=== PATIENT | female | born 1960 | race Caucasian/White ===

== ENCOUNTER 2017-10-19 09:56 | Emergency (ER) | payer MEDICARE, MEDICAID ==
[~2017-10-19 09:56] MED LIST: CITA20TA11 PO; HYDR-3927 PO; LAMO200T2 PO; LORA1TAB PO; METH500T PO; NITR100C11 PO; OLAN2.5T3 PO; OLAN5TAB3 PO; OMEP-50 PO; ONDA4TAB12 PO
[2017-10-19 11:59] LABS: BASOPHILS % (AUTO) 0.3 % (0-1); EOSINOPHILS # (AUTO) 0.2 X10'3 (0-0.9); EOSINOPHILS % (AUTO) 3.2 % (0-6); HEMATOCRIT 37.7 % (35.0-45.0); LYMPHOCYTES # (AUTO) 1.7 X10'3 (1.1-4.8); LYMPHOCYTES % (AUTO) 26.9 % (21-51); MEAN CORPUSCULAR HEMOGLOBIN 27.8 PG (27.0-31.0); MEAN CORPUSCULAR HGB CONC 34.4 % (33.0-36.5); MEAN CORPUSCULAR VOLUME 80.8 FL (78-98); MEAN PLATELET VOLUME 7.4 FL (7.4-10.4); MONOCYTES # (AUTO) 0.5 X10'3 (0-0.9); MONOCYTES % (AUTO) 7.2 % (2-12); NEUTROPHILS # (AUTO) 3.9 X10'3 (1.8-7.7); NEUTROPHILS % (AUTO) 62.4 % (42-75); PLATELET COUNT 366 X10'3 (140-440); RED BLOOD COUNT 4.67 X10'6 (4.20-5.60); RED CELL DISTRIBUTION WIDTH 15.7 % (11.5-14.5); WHITE BLOOD COUNT 6.3 X10'3 (4.5-11.0)
[2017-10-19 12:24] LABS: ALANINE AMINOTRANSFERASE 23 U/L (12-78); ALBUMIN 4.1 G/DL (3.4-5.0); ALBUMIN/GLOBULIN RATIO 1.2 (1.1-1.5); ALKALINE PHOSPHATASE 97 IU/L (46-116); ANION GAP 9 (8-16); ASPARTATE AMINO TRANSFERASE 15 U/L (10-37); BILIRUBIN,TOTAL 0.4 MG/DL (0.1-1.0); BLOOD UREA NITROGEN 7 MG/DL (7-18); BUN/CREATININE RATIO 6.4 (6.6-38.0); CALCIUM 8.9 MG/DL (8.5-10.1); CHLORIDE 101 MMOL/L (99-107); GLUCOSE 98 MG/DL (70-104); POTASSIUM 3.8 MMOL/L (3.5-5.1); SODIUM 139 MMOL/L (135-145); TOTAL CARBON DIOXIDE 29.4 MMOL/L (24-32); TOTAL PROTEIN 7.4 G/DL (6.4-8.2); eGFR 52 ML/MIN
[2017-10-19 12:25] LABS: ETHANOL < 0.010 GM/DL (0.0-0.010)
[2017-10-19] MEDS ORDERED: LAMO100T89 PO (13:06)
[2017-10-19 13:14] LABS: CLARITY,URINE Clear (Clear); COLOR,URINE Yellow (Yellow); GLUCOSE, URINE Negative (Neg); KETONES,URINE Negative (Neg); LEUKOCYTE ESTERASE ,URINE Moderate (Neg); NITRITES, URINE Negative (Neg); OCCULT BLOOD,URINE Negative (Neg); PH,URINE 5.5 (4.8-8.0); PROTEIN,URINE Negative (Neg)
[2017-10-19 13:15] LABS: UA COLLECTION TYPE CLN CATCH MIDSTREAM; URINE HCG NEGATIVE (NEG)
[2017-10-19 13:21] LABS: BACTERIA,URINE FEW /HPF (Neg); MUCUS STRANDS NONE SEEN /LPF (Neg); RBC,URINE NONE SEEN /HPF (0-2); SQUAMOUS EPITHELIAL CELL,UR FEW /LPF (FEW); WBC,URINE 0-4 /HPF (0-4)
[2017-10-19 13:26] LABS: URINE AMPHETAMINE SCREEN POSITIVE (Neg); URINE BARBITUATE SCREEN NEGATIVE (Neg); URINE BENZODIAZEPINES SCREEN POSITIVE (Neg); URINE CANNABINOID SCREEN NEGATIVE (Neg); URINE COCAINE SCREEN NEGATIVE (Neg); URINE METHADONE SCREEN NEGATIVE (Neg); URINE OPIATE SCREEN NEGATIVE (Neg); URINE PHENCYCLIDINE SCREEN NEGATIVE (Neg)
[2017-10-19] MEDS ORDERED: IBUP-1984 PO (13:29)
[2017-10-19] MEDS ORDERED: ONDA4TAB9 PO (13:29)
[2017-10-19] MEDS ORDERED: FAMO10TA41 PO (13:29)
[2017-10-19] MEDS ORDERED: LAMO200T2 PO (13:43)
[2017-10-19] MEDS ORDERED: BUSP10TA11 PO (13:46)
[2017-10-19] MEDS ORDERED: ZOLP10TA5 PO (13:46)
[2017-10-19] MEDS ORDERED: PANT20TA2 PO (13:46)
[2017-10-19 14:00] VITALS: BP 122/78
[2017-10-19] MEDS ORDERED: zolpidem 5mg tablet PO PRN (14:10)
[2017-10-19] MEDS ORDERED: ibuprofen tablet 400 MG TABLET PO PRN (14:10)
[2017-10-19] MEDS ORDERED: ondansetron 4mg rapidly disintigrating tab PO PRN (14:10)
[2017-10-19] MEDS ORDERED: LORazepam 1 MG tablet PO PRN (14:45)
[2017-10-19] MEDS ORDERED: busPIRone 5mg tablet PO SCH (20:00)
[2017-10-19] MEDS ORDERED: famotidine 20mg tablet PO SCH (21:00)
[2017-10-20] MEDS ORDERED: pantoprazole 40mg Tablet.DR PO SCH (07:30)
[2017-10-20] MEDS ORDERED: lamoTRIgine 100mg tablet PO SCH (08:00)
== END 2017-10-19 16:28 ==
LOC: ER 09:56
DX: F41.9 Anxiety disorder, unspecified (principal); F31.9 Bipolar disorder, unspecified; I10 Essential (primary) hypertension; K21.9 Gastro-esophageal reflux disease without esophagitis; F12.10 Cannabis abuse, uncomplicated; F15.10 Other stimulant abuse, uncomplicated; Z60.2 Problems related to living alone; Z88.8 Allergy status to other drugs, medicaments and biological substances; Z90.49 Acquired absence of other specified parts of digestive tract; Z79.899 Other long term (current) drug therapy
CPT/HCPCS: 36415; 80053; 80305; 80320; 81001; 81025; 84443; 85025; 99285

== ENCOUNTER 2017-10-19 15:16 | Inpatient (IN) | payer MEDICARE, MEDICAID ==
[~2017-10-19] VITALS: Ht 172.7 cm; Wt 84.1 kg
[~2017-10-19 15:16] MED LIST changes: +BUSP10TA11 PO; +FAMO10TA41 PO; +IBUP-1984 PO; +LAMO100T89 PO; +ONDA4TAB9 PO; +PANT20TA2 PO; +ZOLP10TA5 PO
[2017-10-19 17:26] VITALS: BP 142/96
[2017-10-19 20:00] VITALS: BP 137/97
[2017-10-19 20:30] VITALS: BP 120/84
[2017-10-19] MEDS: busPIRone 5mg tablet PO SCH (20:55)
[2017-10-19] MEDS: famotidine 20mg tablet PO SCH (20:56)
[2017-10-19] MEDS ORDERED: zolpidem 5mg tablet PO PRN (21:00)
[2017-10-20 07:25] VITALS: BP 120/80
[2017-10-20] MEDS ORDERED: clonazePAM 1mg tablet PO ONE (07:35)
[2017-10-20] MEDS: pantoprazole 40mg Tablet.DR PO SCH (07:45)
[2017-10-20] MEDS ORDERED: lamoTRIgine 100mg tablet PO SCH (08:00)
[2017-10-20] MEDS: busPIRone 5mg tablet PO SCH ×2 (09:00→21:26)
[2017-10-20] MEDS: ibuprofen tablet 400 MG TABLET PO PRN (14:03)
[2017-10-20] MEDS: ondansetron 4mg rapidly disintigrating tab PO PRN (14:03)
[2017-10-20] MEDS ORDERED: zolpidem 5mg tablet PO PRN (14:05)
[2017-10-20] MEDS ORDERED: calcium carbonate 500mg chew tablet PO PRN ×2 (15:15→16:06)
[2017-10-20 19:45] VITALS: BP 120/84
[2017-10-20] MEDS: polyethylene glycol 3350 17gm powd pack PO SCH (21:00)
[2017-10-20] MEDS ORDERED: gabapentin 400mg capsule PO SCH (21:00)
[2017-10-20] MEDS: clonazePAM 0.5mg tablet PO PRN (21:28)
[2017-10-20] MEDS: famotidine 20mg tablet PO SCH (21:28)
[2017-10-21] MEDS ORDERED: gabapentin 300mg capsule PO SCH ×2 (07:30→21:00)
[2017-10-21 08:00] VITALS: BP 129/87
[2017-10-21] MEDS: pantoprazole 40mg Tablet.DR PO SCH (08:44)
[2017-10-21] MEDS: buPROPion 75mg tablet PO SCH (08:44)
[2017-10-21] MEDS: lamoTRIgine 100mg tablet PO SCH (08:45)
[2017-10-21] MEDS: busPIRone 5mg tablet PO SCH ×2 (08:46→21:05)
[2017-10-21] MEDS: gabapentin 100mg capsule PO SCH (12:30)
[2017-10-21] MEDS: ondansetron 4mg rapidly disintigrating tab PO PRN (13:39)
[2017-10-21] MEDS: ibuprofen tablet 400 MG TABLET PO PRN (18:47)
[2017-10-21] MEDS: clonazePAM 0.5mg tablet PO PRN (18:48)
[2017-10-21 19:16] VITALS: BP 131/95
[2017-10-21] MEDS: polyethylene glycol 3350 17gm powd pack PO SCH (21:00)
[2017-10-21] MEDS: famotidine 20mg tablet PO SCH (21:07)
[2017-10-22] MEDS: gabapentin 100mg capsule PO SCH ×2 (07:30→12:30)
[2017-10-22] MEDS: pantoprazole 40mg Tablet.DR PO SCH (07:59)
[2017-10-22 08:00] VITALS: BP 135/74
[2017-10-22] MEDS: buPROPion 75mg tablet PO SCH (08:00)
[2017-10-22] MEDS: busPIRone 5mg tablet PO SCH (08:00)
[2017-10-22] MEDS: clonazePAM 0.5mg tablet PO PRN (08:07)
[2017-10-22] MEDS: ondansetron 4mg rapidly disintigrating tab PO PRN (08:07)
[2017-10-22] MEDS: lamoTRIgine 100mg tablet PO SCH (10:07)
[2017-10-22] MEDS ORDERED: BUSP15TA3 PO (12:19)
[2017-10-22] MEDS ORDERED: LAMO150T PO (12:19)
[2017-10-22] MEDS ORDERED: PANT40TA4 PO (12:19)
== END 2017-10-22 14:30 | disposition home or self-care (01) | DRG 885 ==
LOC: ADULT MH 15:16
PROVIDERS: ADMIT Psychiatry & Neurology Psychiatry; ATTEND Psychiatry & Neurology Psychiatry
DX: F33.2 Major depressive disorder, recurrent severe without psychotic features (principal); F15.988 Other stimulant use, unspecified with other stimulant-induced disorder; F41.1 Generalized anxiety disorder; K21.9 Gastro-esophageal reflux disease without esophagitis; K58.1 Irritable bowel syndrome with constipation; Z60.2 Problems related to living alone; Z98.51 Tubal ligation status; Z90.49 Acquired absence of other specified parts of digestive tract; Z79.1 Long term (current) use of non-steroidal anti-inflammatories (NSAID); Z79.899 Other long term (current) drug therapy; Z88.8 Allergy status to other drugs, medicaments and biological substances
CPT/HCPCS: 87070; 99285